=== PATIENT | male | born 1960 | race Caucasian/White ===

== ENCOUNTER 2019-08-21 16:53 | Inpatient (IN) | payer OTHER ==
[~2019-08-21] VITALS: Ht 172.7 cm; Wt 92.1 kg
[2019-08-21 16:58] VITALS: BP 158/120
[2019-08-21 17:32] LABS: ABSOLUTE NEUTROPHILS 5.5 thou/uL (1.4-8.2); BASOPHILS 2.9 % (0.0-2.0); EOSINOPHILS 3.3 % (0.0-3.0); HEMATOCRIT 49.1 % (42.0-52.0); HEMOGLOBIN 16.8 gm/dL (14.0-18.0); LYMPHOCYTES 19.6 % (24.0-44.0); MCH 31.7 pg (26.0-34.0); MCHC 34.3 g/dL (28.0-37.0); MCV 92.4 fL (80.0-100.0); MONOCYTES 9.5 % (1.0-8.0); POLYS 64.7 % (36.0-66.0); RBC 5.31 mil/uL (4.50-6.00); RDW 13.6 % (10.5-14.5); WBC 8.5 thou/uL (4.0-11.0)
[2019-08-21 17:39] LABS: ANION GAP 7 mmol/L (7-16); BUN 16 mg/dL (7-18); CALCIUM 9.6 mg/dL (8.5-10.1); CHLORIDE 99 mmol/L (98-107); CO2 27 mmol/L (21-32); CREATININE 1.1 mg/dL (0.7-1.3); GLUCOSE 100 mg/dL (74-106); POTASSIUM 3.9 mmol/L (3.5-5.1); SODIUM 133 mmol/L (136-145)
[2019-08-21 17:49] LABS: ALBUMIN 3.6 g/dL (3.4-5.0); LIPASE 121 U/L (73-393); SGOT 26 U/L (15-37); SGPT 39 U/L (30-65); TOTAL BILIRUBIN 0.7 mg/dL (<0.1-1.0); TOTAL PROTEIN 7.9 g/dL (6.4-8.2); TROPONIN-I <0.06 ng/mL (<0.06)
[2019-08-21 17:51] LABS: LARGE PLATELETS RARE; PLATELET COUNT 219 thou/uL (150-400)
[2019-08-21 18:11] VITALS: BP 147/93
[2019-08-21 18:24] LABS: URINE BILIRUBIN NEGATIVE (Negative); URINE BLOOD NEGATIVE (Negative); URINE CLARITY CLEAR; URINE COLOR YELLOW; URINE GLUCOSE-RANDOM* NEGATIVE (Negative); URINE KETONES NEGATIVE (Negative); URINE LEUKOCYTES-REFLEX NEGATIVE (Negative); URINE NITRITE-REFLEX NEGATIVE (Negative); URINE PROTEIN (DIPSTICK) NEGATIVE (Negative); URINE SPECIFIC GRAVITY <= 1.005 (1.005-1.035); URINE UROBILINOGEN 0.2 E.U./dl (0.2-1.0)
[2019-08-21] MEDS ORDERED: TOPROL XL100 MG PO ×2 (19:05)
[2019-08-21] MEDS ORDERED: LEVO-T100 MCG PO ×2 (19:05)
[2019-08-21] MEDS ORDERED: MELOXICAM15 MG PO ×2 (19:05)
[2019-08-21] MEDS ORDERED: OMEPRAZOLE 20 M20 M1 PO ×2 (19:05)
[2019-08-21 19:27] VITALS: BP 169/93
[2019-08-21 19:59] VITALS: BP 172/98
[2019-08-21] MEDS ORDERED: CLONAZEPAM 0.50.5 M1 PO ×2 (20:23)
[2019-08-21 23:29] VITALS: BP 157/89
[2019-08-22 04:23] VITALS: BP 153/82
[2019-08-22 05:51] LABS: HEMATOCRIT 43.6 % (42.0-52.0); MCH 31.4 pg (26.0-34.0); MCHC 33.6 g/dL (28.0-37.0); MCV 93.6 fL (80.0-100.0); RBC 4.66 mil/uL (4.50-6.00); RDW 13.5 % (10.5-14.5); WBC 5.6 thou/uL (4.0-11.0)
[2019-08-22 05:54] LABS: HEMOGLOBIN 14.6 gm/dL (14.0-18.0)
[2019-08-22 06:22] LABS: ALBUMIN 2.8 g/dL (3.4-5.0); CALCIUM 8.2 mg/dL (8.5-10.1); CREATININE 0.8 mg/dL (0.7-1.3); MAGNESIUM 1.7 mg/dL (1.8-2.4); PHOSPHORUS 3.4 mg/dL (2.5-4.9); POTASSIUM 3.3 mmol/L (3.5-5.1)
--- NOTE | 2019-08-22 08:41 | NUR ---
PT ARRIVED FROM ER VIA CART, PLACED IN ROOM 357. ADMISSION ASSESSMENTS COMPLETED. PT INITIALLY REPORTING MILD DIFFUSE ABDOMINAL PAIN. DID TREAT INCREASED ABD PAIN WITH ONE DOSE OF FENTANYL OVERNIGHT. DENIED ANY NAUSEA. ENCOURAGED TO CALL WITH ANY INCREASED ABD PAIN, NAUSEA AND SWEATS/CHILLS. CONTINUE TO MONITOR.
[2019-08-22 08:42] VITALS: BP 154/83
[2019-08-22 09:37] VITALS: BP 159/93
--- NOTE | 2019-08-22 09:56 | EKG ---
[facility] [place] [address] ELECTROCARDIOGRAM REPORT Name: TRINI STANLEY Room #: 357- ADM IN M.R.#: [id number] Admission: 08/21/19 Attend Phys: Garrett Diaz MD Discharge: Date of : 60 Report #: [id number] THIS REPORT FOR: cc: Leonardo Albarran MD, Neal A. MD Park, Jin S. MD ~ THIS REPORT FOR: //name// [facility] ED Test Date: 2019-08-21 Test Time: 17:40:14 Pat Name: TRINI STANLEY Department: Room: 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
[2019-08-22 20:05] VITALS: BP 177/90
--- NOTE | 2019-08-22 20:31 | NUR ---
PATIENT ALERT AND ORIENTED AND TRANSFERRED FROM 3W TO 4S ROOM 448 ABOUT 1600 IN STABLE CONDITION. PAIN IN MANAGED WELL WITH PAIN MEDS. UP AD NILSON TO BATHROOM HAVING LOOSE STOOLS
[2019-08-22 22:49] VITALS: BP 158/81
[2019-08-23 04:50] VITALS: BP 174/90
[2019-08-23 07:24] VITALS: BP 168/97
--- NOTE | 2019-08-23 07:33 | NUR ---
ASSUMED CARE OF PT @1900. PT A&OX4. IV INTACT AND FLUIDS INFUISING. PT AD NILSON TO THE BATHROOM. HAD X4 EPISODES OF LIGHT YELLOW STOOL. PAIN MEDS GIVE. PT NPO WITH SIPS OF WATER. BP MED GIVEN THIS SHIFT. CALL LIGHT IN REACH AND NO FURTHER SIGNS OF DISTRESS.
[2019-08-23 12:10] LABS: HEMATOCRIT 45.1 % (42.0-52.0); HEMOGLOBIN 15.5 gm/dL (14.0-18.0); MCH 31.7 pg (26.0-34.0); MCHC 34.4 g/dL (28.0-37.0); MCV 92.2 fL (80.0-100.0); RBC 4.9 mil/uL (4.50-6.00); RDW 13.2 % (10.5-14.5); WBC 7.3 thou/uL (4.0-11.0)
[2019-08-23 12:17] LABS: ALBUMIN 2.9 g/dL (3.4-5.0); CALCIUM 8.9 mg/dL (8.5-10.1); CREATININE 0.8 mg/dL (0.7-1.3); PHOSPHORUS 3.3 mg/dL (2.5-4.9); POTASSIUM 4.4 mmol/L (3.5-5.1)
[2019-08-23 12:25] VITALS: BP 168/97
--- NOTE | 2019-08-23 13:33 | NUR ---
PT CARE ASSUMED AT 0700.A&Ox4. UP INDEPENDENTLY IN THE ROOM. TOLERATING SMALL SIPS OF WATER WELL. FLUIDS CHANGED FROM LR TO NS. PT CONTINUES TO HAVE DIARRHEA AND IS WEARING BRIEFS. IV'S REMOVED DUE TO LINES BEING BAD AND NEW IV PLACED ON THE L.FA. PER DR. GODOY FLUIDS CAN BE DC'D AND DIET CAN BE ADVANCED TO CLEAR LIQUIDS. BLOOD GLUCOSE MONITORING CAN ALSO BE DC'D PER PROTOCOL. CALL LIGHT IN REACH. WILL CONTINUE TO MONITOR.
[2019-08-23 16:47] VITALS: BP 180/96
[2019-08-23 19:20] VITALS: BP 155/82
--- NOTE | 2019-08-24 03:30 | NUR ---
ASSUMED PT CARE AT 1900. PT REPORTS DIARRHEA STILL, REQUESTING BRIEFS. ANTIBIOTICS GIVEN PER ORDER. NO REPORTS OF PAIN THIS EVENING. UP AD NILSON IN ROOM. SLEEPING COMFORTABLY IN BED AT THIS TIME, HOPING TO GO HOME TODAY.
[2019-08-24 04:00] VITALS: BP 133/89
[2019-08-24 05:23] LABS: HEMATOCRIT 46.6 % (42.0-52.0); HEMOGLOBIN 15.8 gm/dL (14.0-18.0); MCH 31.6 pg (26.0-34.0); RBC 5.01 mil/uL (4.50-6.00); RDW 13.2 % (10.5-14.5); WBC 7.7 thou/uL (4.0-11.0)
[2019-08-24 05:53] LABS: ALBUMIN 3.2 g/dL (3.4-5.0); CALCIUM 8.6 mg/dL (8.5-10.1); CREATININE 0.8 mg/dL (0.7-1.3); PHOSPHORUS 3.7 mg/dL (2.5-4.9); POTASSIUM 4.1 mmol/L (3.5-5.1)
[2019-08-24 08:57] VITALS: BP 128/75
[2019-08-24] MEDS ORDERED: OXYCODONE HCL 55 MG PO ×2 (12:12)
[2019-08-24] MEDS ORDERED: ACETAMINOPHEN325 M1 PO ×2 (12:13)
[2019-08-24] MEDS ORDERED: CEFDINIR300 MG PO ×2 (12:14)
[2019-08-24] MEDS ORDERED: METRONIDAZOLE500 M4 PO ×2 (12:14)
[2019-08-24 13:41] VITALS: BP 128/75
--- NOTE | 2019-08-24 15:31 | NUR ---
ASSUMED CARE OF THE PT AT 0700. PT IS AMBULATORY. PAIN CONTROLLED BY PAIN MEDS. PT DIET ADVANCED TO LOW RESIDUE DIET, PER DOCTOR, TOLERATED WELL. PROTONIX ORDERED FOR PT, SEE EMAR. PT D/C'D TO HOME WITH BELONGINGS AND RX'S. D/C PAPERWORK SIGNED, IV REMOVED AND PT DISCHARGED.
== END 2019-08-24 14:15 | disposition home or self-care (01) | DRG 392 ==
LOC: ER 16:53 → 4S 17:57 → EROBS 17:57 → 3W 19:47 → 4S 08-22 16:06
PROVIDERS: Emergency Medicine; ADMIT Surgery
DX: K57.20 Diverticulitis of large intestine with perforation and abscess without bleeding (principal); F17.210 Nicotine dependence, cigarettes, uncomplicated; I10 Essential (primary) hypertension; E03.9 Hypothyroidism, unspecified; G47.00 Insomnia, unspecified; K21.9 Gastro-esophageal reflux disease without esophagitis; J44.9 Chronic obstructive pulmonary disease, unspecified; M19.90 Unspecified osteoarthritis, unspecified site; Z85.850 Personal history of malignant neoplasm of thyroid; Z86.718 Personal history of other venous thrombosis and embolism; Z86.010 Personal history of colon polyps; Z85.828 Personal history of other malignant neoplasm of skin; Z79.899 Other long term (current) drug therapy; Z91.81 History of falling; Z80.0 Family history of malignant neoplasm of digestive organs
CPT/HCPCS: 10100; 10195; 10879

== ENCOUNTER → 2019-08-21 | Outpatient (CLI) | payer OTHER ==
[~2019-08-21] MED LIST: ACETAMINOPHEN325 M1 PO; CEFDINIR300 MG PO; CLONAZEPAM 0.50.5 M1 PO; LEVO-T100 MCG PO; MELOXICAM15 MG PO; METRONIDAZOLE500 M4 PO; OMEPRAZOLE 20 M20 M1 PO; OXYCODONE HCL 55 MG PO; TOPROL XL100 MG PO
== END ==
LOC: CAT 15:26
DX: K57.92 Diverticulitis of intestine, part unspecified, without perforation or abscess without bleeding (principal)

== ENCOUNTER → 2020-11-21 | Outpatient (CLI) | payer OTHER ==
[~2020-11-21] MED LIST changes: +ASA81BEC PO; +PLAVIX 75 MG TA75 MG PO; +PROTONIX40 M4 PO
== END ==
LOC: SJCVCIMAG 15:16
PROVIDERS: ATTEND Nuclear Medicine Nuclear Cardiology
DX: I70.298 Other atherosclerosis of native arteries of extremities, other extremity (principal); M79.601 Pain in right arm; M79.89 Other specified soft tissue disorders

== ENCOUNTER → 2020-11-22 | Outpatient (CLI) | payer OTHER ==
[~2020-11-22] VITALS: Ht 172.7 cm; Wt 95.3 kg
[2020-11-22 07:31] VITALS: BP 173/100
[2020-11-22 07:54] LABS: HEMOGLOBIN 16.5 gm/dL (14.0-18.0); MCH 31.8 pg (26.0-34.0); MCHC 33.7 g/dL (28.0-37.0); MCV 94.4 fL (80.0-100.0); RBC 5.19 mil/uL (4.50-6.00); RDW 14.3 % (10.5-14.5); WBC 7.6 thou/uL (4.0-11.0)
[2020-11-22 08:00] LABS: CALCIUM 8.6 mg/dL (8.5-10.1); POTASSIUM 4.3 mmol/L (3.5-5.1)
== END | disposition home or self-care (01) ==
LOC: CATH 06:22
PROVIDERS: ATTEND Nuclear Medicine Nuclear Cardiology
DX: I73.89 Other specified peripheral vascular diseases (principal); I70.1 Atherosclerosis of renal artery; M79.641 Pain in right hand; R20.0 Anesthesia of skin; L60.8 Other nail disorders; I12.9 Hypertensive chronic kidney disease with stage 1 through stage 4 chronic kidney disease, or unspecified chronic kidney disease; N18.9 Chronic kidney disease, unspecified; J44.9 Chronic obstructive pulmonary disease, unspecified; I25.2 Old myocardial infarction; F17.210 Nicotine dependence, cigarettes, uncomplicated; K21.9 Gastro-esophageal reflux disease without esophagitis; Z98.890 Other specified postprocedural states; Z79.899 Other long term (current) drug therapy